=== PATIENT | male | born 1950 | race Caucasian/White ===

== ENCOUNTER 2025-07-26 07:29 | Emergency (ER) | payer OTHER ==
[2025-07-26 07:48] LABS: BASOPHILS ABSOLUTE AUTO 0.02 K/uL (0.00-0.20); BASOPHILS PERCENT AUTO 0.3 % (0.0-2.0); EOSINOPHILS ABSOLUTE AUTO 0.07 K/uL (0.00-0.50); EOSINOPHILS PERCENT AUTO 1.1 % (0.0-5.0); IMMATURE GRAN ABSOLUTE AUTO 0.02 10^3/uL (0.00-0.04); IMMATURE GRAN PERCENT AUTO 0.3 % (0.0-0.4); LYMPHOCYTES ABSOLUTE AUTO 2.29 K/uL (0.50-3.50); LYMPHOCYTES PERCENT AUTO 37.4 % (10.0-50.0); MONOCYTES ABSOLUTE AUTO 0.61 K/uL (0.00-1.00); MONOCYTES PERCENT AUTO 10.0 % (2.0-14.0); NEUTROPHILS ABSOLUTE AUTO 3.12 K/uL (1.40-7.00); NEUTROPHILS PERCENT AUTO 50.9 % (45.0-80.0); PLATELET COUNT,PLT 440 K/uL (150-350); RED BLOOD CELL COUNT 4.50 M/uL (4.33-5.41); RED CELL DISTRIBUTION WIDTH 12.1 % (11.2-14.1); WHITE BLOOD CELL COUNT,WBC 6.1 K/uL (4.0-10.2)
[2025-07-26 08:23] LABS: LACTIC ACID 1.3 mmol/L (0.4-2.0)
[2025-07-26 08:25] LABS: ALANINE AMINOTRANSFERASE,ALT 36 U/L (12-78); ASPARTATE AMNIOTRANSFERASE,AST 15 U/L (15-37); BILIRUBIN TOTAL 0.6 mg/dL (0.2-1.0); BLOOD UREA NITROGEN,BUN 19 mg/dL (7-18); CARBON DIOXIDE,CO2 22.6 mmol/L (21.0-32.0); CHLORIDE,CL 109 mmol/L (98-107); CREATININE 1.17 mg/dL (0.51-1.17); GLUCOSE RANDOM 100 mg/dL (70-99); INR 1.1 (0.9-1.1); POTASSIUM,K 3.9 mmol/L (3.5-5.1); PROTEIN TOTAL,TP 7.7 g/dL (6.4-8.2); PTT,PARTIAL THROMBOPLSTIN TIME 25.7 SEC (23.8-34.4); SODIUM,NA 143 mmol/L (136-145); TSH ULTRASENSITIVE 1.061 mIU/mL (0.358-3.740)
[2025-07-26 08:26] LABS: APPEARANCE,URINE SLIGHTLY CLOUDY; GLUCOSE,URINE NEGATIVE (NEGATIVE); OCCULT BLOOD,URINE NEGATIVE (NEGATIVE)
[2025-07-26 08:27] LABS: ESTIMATED GFR 65 mL/min (>=60)
[2025-07-26 08:33] LABS: SQUAMOUS EPITHELIAL CELLS,UR RARE /HPF (NOT SEEN)
[2025-07-26] MEDS: Sodium Chloride 0.9% 10 ML Syringe FLUSH PRN (08:44)
[2025-07-26] MEDS: Iopamidol 612 MG/ML 100 ML Bottle IVPUSH STA (09:04)
== END 2025-07-26 10:40 | disposition home or self-care (01) ==
LOC: LL.ED 07:29
DX: N39.0 Urinary tract infection, site not specified (principal); Z79.899 Other long term (current) drug therapy; Z79.82 Long term (current) use of aspirin
CPT/HCPCS: 36415; 74177; 80053; 81001; 82150; 83605; 83690; 83735; 84443; 85025; 85610; 85730; 86140; 87086; 87088; 87186; 96374; 96375; 99284; 99285-25; J0696; J1171; Q9967